=== PATIENT | male | born 1960 | race Caucasian/White ===

== ENCOUNTER 2016-06-30 17:16 | Emergency (ER) | payer MEDICAID, MEDICARE ==
[~2016-06-30] VITALS: Ht 172.7 cm; Wt 90.0 kg
[~2016-06-30 17:16] MED LIST: ATEN50TA; CEPH500C2; DEXTROAMP-AMPHETAMIN; OLAN20TA29; SULF-293
[2016-07-01 03:15] VITALS: BP 145/80
== END 2016-07-01 03:22 | disposition home or self-care (01) ==
LOC: ER 17:17
DX: L21.9 Seborrheic dermatitis, unspecified (principal); I10 Essential (primary) hypertension; G47.419 Narcolepsy without cataplexy; J45.909 Unspecified asthma, uncomplicated
CPT/HCPCS: 99283

== ENCOUNTER 2016-12-10 01:08 | Inpatient (IN) | payer MEDICARE, MEDICAID ==
[~2016-12-10] VITALS: Ht 172.7 cm; Wt 85.3 kg
[2016-12-10] VITALS (8 sets, daily range): BP systolic 90–113; BP diastolic 52–69
[2016-12-10] MEDS ORDERED: SODIUM CHLORIDE 0.9% 1,000 ML IV ONE (01:28)
[2016-12-10] MEDS ORDERED: FENTANYL CITRATE/PF 50MCG/ML 2ML VIAL IV ONE (01:30)
[2016-12-10 02:12] LABS: BASOPHILS % 0.9 % (0.0-2.0); EOSINOPHILS % 0.3 % (0.0-5.0); HEMATOCRIT. 40.5 % (42.0-52.0); HEMOGLOBIN. 14.2 g/dL (14.0-18.0); LYMPHOCYTES % 23.6 % (20.0-50.0); MEAN CORPUSCULAR VOLUME 88.6 fL (80.0-94.0); MEAN PLATELET VOLUME 8.9 fl (7.4-10.4); MONOCYTES % 9.3 % (2.0-8.0); NEUTROPHILS % 65.9 % (40.0-76.0); PLATELET 187 x1000/uL (130-400); RED BLOOD CELL COUNT 4.57 mill/uL (4.7-6.1); RED CELL DISTRIBUTION WIDTH 13.6 % (11.6-14.6)
[2016-12-10 02:23] LABS: INR 1.1; PARTIAL THROMBOPLASTIN TIME 28.8 sec (23.4-31.0); PROTHROMBIN TIME 11.7 sec (9.4-11.6)
[2016-12-10 02:31] LABS: CARBON DIOXIDE 27 mEq/L (21-32); CHLORIDE 101 mEq/L (98-107); ETHANOL BLOOD < 10 mg/dL; TROPONIN I < 0.02 ng/mL (0.00-0.04)
[2016-12-10 03:51] LABS: BASOPHILS % 0.8 % (0.0-2.0); EOSINOPHILS % 0.3 % (0.0-5.0); HEMATOCRIT. 39.1 % (42.0-52.0); HEMOGLOBIN. 13.8 g/dL (14.0-18.0); LYMPHOCYTES % 22.3 % (20.0-50.0); MEAN CORPUSCULAR HEMOGLOBIN 30.9 pg (28.0-32.0); MEAN PLATELET VOLUME 8.6 fl (7.4-10.4); MONOCYTES % 9.1 % (2.0-8.0); NEUTROPHILS % 67.5 % (40.0-76.0); PLATELET 168 x1000/uL (130-400); RED BLOOD CELL COUNT 4.45 mill/uL (4.7-6.1); RED CELL DISTRIBUTION WIDTH 13.4 % (11.6-14.6)
[2016-12-10] MEDS ORDERED: DIPHENHYDRAMINE 50MG/ML VIAL IV STA (04:14)
[2016-12-10] MEDS ORDERED: MORPHINE SULFATE 2 MG/ML CPJ (NOT FOR IM USE) IV PRN (04:15)
[2016-12-10] MEDS ORDERED: DIPHENHYDRAMINE 50MG/ML VIAL IV SCH (05:32)
[2016-12-10] MEDS ORDERED: LORAZEPAM 2MG/ML CPJ IV ONE (05:45)
[2016-12-10] MEDS ORDERED: ZIPRASIDONE MESYLATE 20MG/VIAL IM ONE (06:00)
[2016-12-10] MEDS ORDERED: DIPHENHYDRAMINE 50MG/ML VIAL IV PRN (13:30)
[2016-12-10] MEDS ORDERED: ONDANSETRON HCL 4MG/2ML VIAL IV PRN (13:30)
[2016-12-10] MEDS ORDERED: DOCUSATE SODIUM 100MG CAPSULE PO PRN (13:30)
[2016-12-10] MEDS ORDERED: ACETAMINOPHEN 325MG TABLET PO PRN (13:30)
[2016-12-10] MEDS ORDERED: HYDROCODONE/ACETAMINOPHEN 5/325MG TABLET PO PRN (13:30)
[2016-12-10] MEDS ORDERED: CLONIDINE 0.1MG TABLET PO PRN (13:30)
[2016-12-10] MEDS ORDERED: MORPHINE SULFATE 4 MG/ML CPJ (NOT FOR IM USE) IV PRN (13:45)
[2016-12-10] MEDS ORDERED: LORAZEPAM 2MG/ML CPJ IV PRN (17:00)
[2016-12-11] VITALS (12 sets, daily range): BP systolic 119–170; BP diastolic 59–97
[2016-12-11 06:52] LABS: BASOPHILS % 0.5 % (0.0-2.0); EOSINOPHILS % 0.8 % (0.0-5.0); HEMATOCRIT. 41.3 % (42.0-52.0); HEMOGLOBIN. 14.3 g/dL (14.0-18.0); LYMPHOCYTES % 19.8 % (20.0-50.0); MEAN CORPUSCULAR HEMOGLOBIN 30.8 pg (28.0-32.0); MEAN CORPUSCULAR VOLUME 88.8 fL (80.0-94.0); MEAN PLATELET VOLUME 9.2 fl (7.4-10.4); MONOCYTES % 7.4 % (2.0-8.0); NEUTROPHILS % 71.5 % (40.0-76.0); PLATELET 186 x1000/uL (130-400); RED BLOOD CELL COUNT 4.64 mill/uL (4.7-6.1); RED CELL DISTRIBUTION WIDTH 13.4 % (11.6-14.6)
[2016-12-11 08:16] LABS: CARBON DIOXIDE 27 mEq/L (21-32); CHLORIDE 101 mEq/L (98-107)
[2016-12-11] MEDS: ASPIRIN 81MG EC TABLET PO SCH (09:00)
[2016-12-11] MEDS: ATENOLOL 50 MG TABLET PO SCH (12:47)
[2016-12-11] MEDS ORDERED: HALOPERIDOL LACTATE 5MG/ML VIAL IM NR (15:15)
[2016-12-12] VITALS (11 sets, daily range): BP systolic 107–142; BP diastolic 64–86
[2016-12-12] MEDS: ATENOLOL 50 MG TABLET PO SCH (09:00)
[2016-12-12] MEDS: ASPIRIN 81MG EC TABLET PO SCH (09:00)
[2016-12-13] VITALS (7 sets, daily range): BP systolic 106–126; BP diastolic 55–73
[2016-12-13] MEDS: ASPIRIN 81MG EC TABLET PO SCH (09:11)
[2016-12-13] MEDS: ATENOLOL 50 MG TABLET PO SCH (09:11)
[2016-12-14] VITALS (8 sets, daily range): BP systolic 104–138; BP diastolic 53–79
[2016-12-14] MEDS: ATENOLOL 50 MG TABLET PO SCH (08:28)
[2016-12-14] MEDS: ASPIRIN 81MG EC TABLET PO SCH (08:28)
[2016-12-14] MEDS ORDERED: HALOPERIDOL LACTATE 5MG/ML VIAL IM PRN (21:15)
[2016-12-14] MEDS ORDERED: DIPHENHYDRAMINE 50MG/ML VIAL IM PRN (21:15)
[2016-12-15] MEDS: ATENOLOL 50 MG TABLET PO SCH (08:53)
[2016-12-15] MEDS: ASPIRIN 81MG EC TABLET PO SCH (08:53)
== END 2016-12-15 15:26 | DRG 604 ==
LOC: ER 01:08 → 5EST 05:19 → EDBEDREQTM 05:51 → EDBEDREQ 05:51 → ENRESERV 05:53 → EDBEDREQ 08:56 → 6EST 12-14 17:30
PROVIDERS: ADMIT Hospitalist; ATTEND Hospitalist
DX: S00.83XA Contusion of other part of head, initial encounter (principal); G93.40 Encephalopathy, unspecified; I95.9 Hypotension, unspecified; F03.90 Unspecified dementia, unspecified severity, without behavioral disturbance, psychotic disturbance, mood disturbance, and anxiety; E86.0 Dehydration; W18.30XA Fall on same level, unspecified, initial encounter; M47.9 Spondylosis, unspecified; Z91.81 History of falling
CPT/HCPCS: 36415; 70450; 70486; 71010; 72125; 80053; 82962; 84484; 85025; 85610; 85730; 93005; 96374; 96375; 97162; 99285; A6261; G0482; J1200; J1630; J2060; J3486; J7030